=== PATIENT | male | born 1935 | race Caucasian/White ===

== ENCOUNTER 2017-01-01 18:12 | Emergency (ER) | payer MEDICARE, OTHER ==
[2017-01-01] MEDS ORDERED: ACETAMINOPHEN 325 MG TABLET PO STA (20:21)
--- NOTE | 2017-01-01 20:23 | ED Physician Documentation ---
PD HPI Fall - Stated complaint Stated Complaint: FACE LACS DUE TO FALL - Chief complaint Chief Complaint: Heent - History obtained from History obtained from: Patient, Friend - History of Present Illness Mechanism of injury: Tripped Fall distance: Standing position Where injury occurred: Home Timing - onset: Today Injury(ies) location: Head, Face, Left Uppper Extremity (shoulder), Right Lower Extremity (knee) Pain level max: 8 Pain level now: 5 Quality of pain: Pain, Aching, Dull Associated symptoms: No: LOC, AMS, Amnesia, Seizures, Ear drainage, Nasal drainage, Neck pain, Weakness, Paresthesias, Dyspnea, Nausea / vomiting, Hematemesis Symptoms improve with: Rest Worsens with: Movement, Palpation Contributing factors: No: Anticoagulated, Intoxicated Similar symptoms before: Has not had sx before Recently seen: Not recently seen - Additional information Additional information: tripped and fell over his dog today Review of Systems Constitutional: denies: Fever, Chills Nose: denies: Rhinorrhea / runny nose, Congestion Throat: denies: Sore throat Respiratory: denies: Cough, Wheezing GI: denies: Abdominal Pain, Nausea, Vomiting, Diarrhea Skin: denies: Rash Musculoskeletal: reports: Neck pain (mild) Neurologic: reports: Headache (mild), Head injury. denies: Focal weakness, Numbness, Confused, Altered mental status, LOC PD PAST MEDICAL HISTORY - Past Medical History Past Medical History: Yes Cardiovascular: Hypertension Respiratory: None Endocrine/Autoimmune: None GI: None : Dialysis, Renal insuffiency HEENT: None Psych: None Musculoskeletal: None Derm: None - Past Surgical History Past Surgical History: Yes HEENT: Cataracts - Present Medications Home Medications: Ambulatory Orders Medication Instructions Recorded Confirmed Amlodipine Besylate 2.5 mg PO DAILY 09/09/13 09/26/15 Doxazosin Mesylate [Cardura] 8 mg PO DAILY 09/09/13 09/26/15 Losartan/Hydrochlorothiazide 1 each PO DAILY 09/09/13 09/26/15 [Losartan-Hctz 100-12.5 mg Tab] - Allergies Allergies/Adverse Reactions: Allergies Allergy/AdvReac Type Severity Reaction Status Date / Time Sulfa (Sulfonamide Allergy Severe Dizziness Verified 09/26/15 13:06 Antibiotics) - Social History Does the pt smoke?: No Smoking Status: Never smoker Does the pt drink ETOH?: No Does the pt have substance abuse?: No - Immunizations Immunizations are current?: Yes PD ED PE NORMAL - Vitals Vital signs reviewed: Yes - General General: Alert and oriented X 3, No acute distress, Well developed/nourished - HEENT HEENT: PERRL, Moist mucous membranes, Other (abrasion to the scalp and large abrasion over the nose. no bony tenderness. no scalp hematoma.) - Neck Neck: Supple, no meningeal sign, Other (mild TTP over the c-spine) - Cardiac Cardiac: RRR - Respiratory Respiratory: No respiratory distress, Clear bilaterally - Abdomen Abdomen: Soft, Non tender - Derm Derm: Warm and dry - Extremities Extremities: Other (Swelling and ecchymosis to the anterior aspect of the right knee. Tenderness over the patella. Also tenderness to palpation diffusely about the left shoulder. Mild pain with range of motion. No crepitus. Neurovascularly intact. Otherwise normal examination of the extremities.) - Neuro Neuro: Alert and oriented X 3 GCS Score: 15 - Psych Psych: Normal mood, Normal affect Results - Vitals Vitals: Vital Signs - 24 hr 01/01/17 01/01/17 18:17 22:46 Temperature 36.5 C Heart Rate 96 63 Respiratory 18 18 Rate Blood Pressure 143/68 H 132/58 H O2 Saturation 96 95 Oxygen O2 Source Room air - Rads (name of study) head CT Radiology: Prelim report reviewed, EMP read contemporaneously, See rad report ( No acute pathology. Moderate volume loss. ) cervical spine CT Radiology: Prelim report reviewed, EMP read contemporaneously, See rad report ( Severe degenerative change. No visible fracture. Moderate emphysema. ) L shoulder xray Radiology: Prelim report reviewed, EMP read contemporaneously, See rad report ( Osteopenia. No acute fracture or dislocation seen. Degenerative joint disease and rotator cuff atrophy. ) R knee xray Radiology: Prelim report reviewed, EMP read contemporaneously, See rad report ( No acute fracture or dislocation seen. Soft tissue swelling with suspected minimal joint effusion. ) PD MEDICAL DECISION MAKING - ED course Complexity details: reviewed results, re-evaluated patient, considered differential, d/w patient ED course: Patient is an 81-year-old male who suffered a ground-level fall today. Wounds were cleansed and bandaged. No acute findings on x-ray or CT scans. Patient is ambulating quite well in the emergency department. He is not requiring assistive devices at this time. No evidence of intracranial hemorrhage, skull fracture or cervical spine fracture. Patient counseled regarding signs and symptoms for which I believe and urgent re-evaluation would be necessary. Patient with good understanding of and agreement to plan and is comfortable going home at this time This document was made in part using voice recognition software. While efforts are made to proofread this document, sound alike and grammatical errors may occur. Departure - Departure Disposition: 01 Home, Self Care Clinical Impression: Nasal abrasion Fall Qualifiers: Encounter type: initial encounter Qualified Code(s): W19.XXXA - Unspecified fall, initial encounter Knee contusion Qualifiers: Encounter type: initial encounter Laterality: right Qualified Code(s): S80.01XA - Contusion of right knee, initial encounter Head injury Qualifiers: Encounter type: initial encounter Qualified Code(s): S09.90XA - Unspecified injury of head, initial encounter Condition: Good Instructions: ED Contusion Lower Ext, ED Abrasion, ED Head Injury Closed Follow-Up: Pascale Bradshaw MD [Primary Care Provider] - Within 3 Days Comments: Return if you worsen. Your nose will take several days to heal. Discharge Date/Time: 01/01/17 22:55
[2017-01-01] MEDS ORDERED: ACETAMINOPHEN 325 MG TABLET PO ONE (20:24)
--- NOTE | 2017-01-01 22:00 | CT Preliminary Report ---
Exam: CT Head W/O IMPRESSION: 1. No acute pathology. 2. Moderate volume loss. [facility] SITE ID: [id number]
--- NOTE | 2017-01-01 22:03 | CT Report ---
EXAM: CT HEAD EXAM DATE: 01/01/2017 09:12 PM. CLINICAL HISTORY: Fall, head injury. COMPARISON: None. TECHNIQUE: Multiaxial CT images were obtained from the foramen magnum to the vertex. IV contrast: Non e. Reformats: Coronal. In accordance with CT protocol optimization, one or more of the following dose reduction techniques w ere utilized for this exam: automated exposure control, adjustment of mA and/or KV based on patient s ize, or use of iterative reconstructive technique. FINDINGS: Parenchyma: No intraparenchymal hemorrhage. No evidence of mass, midline shift, or CT findings of inf arction. [place]-white differentiation is distinct. Extraaxial Spaces: There is moderate prominence of the ventricles and sulci in keeping with moderate volume loss. Ventricles: Normal in size and position. Sinuses: Imaged paranasal sinuses, orbits, and mastoids show no significant abnormality. Bones: No evidence of fracture or calvarial defect. Other: There is a left frontal scalp laceration. IMPRESSION: 1. No acute pathology. 2. Moderate volume loss. [facility] Referring Provider Line: [phone] SITE ID: [id number]
--- NOTE | 2017-01-01 22:04 | CT Preliminary Report ---
Exam: CT Cervical Spine W/O IMPRESSION: 1. Severe degenerative change. 2. No visible fracture. 3. Moderate emphysema. [facility] SITE ID: [id number]
--- NOTE | 2017-01-01 22:07 | CT Report ---
EXAM: CT CERVICAL SPINE WITHOUT CONTRAST DATE: 01/01/2017 09:13 PM HISTORY: Fall, neck pain. COMPARISONS: None. TECHNIQUE: Thin-section axial images were acquired of the cervical spine without contrast. Post-proce ssing: Coronal and sagittal reformats. Other: None. In accordance with CT protocol optimization, one or more of the following dose reduction techniques w ere utilized for this exam: automated exposure control, adjustment of mA and/or KV based on patient s ize, or use of iterative reconstructive technique. FINDINGS: Alignment: There is a mild left mid cervical levoscoliosis. Bones: There is moderate generalized osteopenia. 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 There is severe facet joint osteoart hritis particularly on the right. There is moderate facet joint osteoarthritis on the left. There is disk space narrowing with endplate osteophyte formation throughout the cervical spine. Musculature: Normal. No fatty atrophy. Other: There is moderate emphysema. IMPRESSION: 1. Severe degenerative change. 2. No visible fracture. 3. Moderate emphysema. [facility] Referring Provider Line: [phone] SITE ID: [id number]
--- NOTE | 2017-01-01 22:16 | XRAY Preliminary Report ---
Exam: XR Knee 4 View RT IMPRESSION: 1. No acute fracture or dislocation seen. 2. Soft tissue swelling with suspected minimal joint effusion. [facility] SITE ID: [id number]
--- NOTE | 2017-01-01 22:17 | XRAY Preliminary Report ---
Exam: XR Shoulder 3 View LT IMPRESSION: 1. Osteopenia. No acute fracture or dislocation seen. 2. Degenerative joint disease and rotator cuff atrophy. [facility] SITE ID: [id number]
--- NOTE | 2017-01-01 22:18 | XRAY Report ---
EXAM: RIGHT KNEE RADIOGRAPHY EXAM DATE: 01/01/2017 08:48 PM. CLINICAL HISTORY: Fall, R knee pain. COMPARISON: 04/12/2011. TECHNIQUE: 4 views. FINDINGS: Bones: Osteopenia. No acute fracture seen. Joints: No dislocation seen. Suspect minimal joint effusion. Very mild degenerative changes. Soft Tissues: Soft tissue swelling. Vascular calcifications. IMPRESSION: 1. No acute fracture or dislocation seen. 2. Soft tissue swelling with suspected minimal joint effusion. [facility] Referring Provider Line: [phone] SITE ID: [id number]
--- NOTE | 2017-01-01 22:20 | XRAY Report ---
EXAM: LEFT SHOULDER RADIOGRAPHY EXAM DATE: 01/01/2017 08:48 PM. CLINICAL HISTORY: Fall, L shoulder pain. COMPARISON: None. TECHNIQUE: 3 views. FINDINGS: Bones: Osteopenia. No acute fracture seen. Joints: No dislocation. Mild degenerative joint disease in the glenohumeral joint and acromioclavicul ar joint. Soft tissues: Rotator cuff atrophy. IMPRESSION: 1. Osteopenia. No acute fracture or dislocation seen. 2. Degenerative joint disease and rotator cuff atrophy. [facility] Referring Provider Line: [phone] SITE ID: [id number]
[2017-01-01 22:49] VITALS: BP 132/58
== END 2017-01-01 22:55 | disposition home or self-care (01) ==
LOC: ED 18:12
DX: S00.31XA Abrasion of nose, initial encounter (principal); S80.01XA Contusion of right knee, initial encounter; S09.90XA Unspecified injury of head, initial encounter; W01.0XXA Fall on same level from slipping, tripping and stumbling without subsequent striking against object, initial encounter; Y92.019 Unspecified place in single-family (private) house as the place of occurrence of the external cause; I10 Essential (primary) hypertension; N28.9 Disorder of kidney and ureter, unspecified; Z99.2 Dependence on renal dialysis
CPT/HCPCS: 70450; 72125; 73030; 73564; 99283; 99284; A9270

== ENCOUNTER 2017-02-01 07:14 | Outpatient (CLI) | payer MEDICARE, OTHER ==
--- NOTE | 2017-02-01 10:35 | Ultrasound Report ---
COMPLETE ABDOMINAL ULTRASOUND: 02/01/2017 CLINICAL INDICATION: Ascites. COMPARISON: Renal ultrasound 06/24/2014. TECHNIQUE: Real-time scanning was performed with financial sales representative static images obtained. FINDINGS: The liver measures 15.6 cm. Hepatic echogenicity is increased, compatible with fatty infi ltration. No focal lesion or intrahepatic biliary dilatation is seen. The common bile duct measures 6 mm. The gallbladder demonstrates a small amount of sludge within its lumen. No shadowing calculu s or wall thickening is present. The pancreas is obscured by bowel gas. The kidneys are atrophic, w ith the right measuring 7.8 cm and the left measuring 9.0 cm. Both kidneys demonstrate cortical cyst s. No hydronephrosis or solid renal lesion is seen. The spleen measures 12.8 cm, and demonstrates n ormal echotexture. The visualized proximal abdominal aorta is normal in caliber. The remainder was obscured by bowel gas. The inferior vena cava is unremarkable. A small volume of ascites is noted. IMPRESSION: SMALL VOLUME OF ASCITES. ECHOGENIC LIVER, LIKELY REPRESENTING FATTY INFILTRATION. NO E VIDENCE OF CHOLELITHIASIS OR BILIARY OBSTRUCTION. JOB #: [id number] EXT JOB #:[id number]
== END 2017-02-01 07:15 | disposition home or self-care (01) ==
LOC: DI 07:14
PROVIDERS: ATTEND Internal Medicine Nephrology
DX: R18.8 Other ascites (principal)
CPT/HCPCS: 76700

== ENCOUNTER 2017-02-25 19:23 | Outpatient (CLI) | payer MEDICARE, OTHER | END 2017-02-25 19:24 | disposition short-term general hospital (02) | LOC: EMS 19:23 | PROVIDERS: ATTEND Surgery | DX: R07.9 Chest pain, unspecified (principal); R11.0 Nausea | CPT/HCPCS: A0425; A0427 ==

== ENCOUNTER 2017-04-03 10:43 | Outpatient (CLI) | payer MEDICARE, OTHER ==
--- NOTE | 2017-04-03 17:02 | XRAY Report ---
TWO VIEW CHEST: 04/03/2017 CLINICAL INDICATION: Pneumonia. COMPARISON: 09/26/2015, chest CT 08/26/2007. The cardiac silhouette is within normal limits. There is a right basilar infiltrate present, with sm all right effusion. Vascular prominence of the right hilum is stable from previous. No left infiltr ate, effusion, or pneumothorax is appreciated. IMPRESSION: RIGHT BASILAR INFILTRATE WITH SMALL RIGHT EFFUSION. JOB #: [id number] EXT JOB #:[id number]
== END 2017-04-03 10:44 | disposition home or self-care (01) ==
LOC: DI 10:43
PROVIDERS: ATTEND Internal Medicine
DX: J18.9 Pneumonia, unspecified organism (principal)
CPT/HCPCS: 71020

== ENCOUNTER 2017-04-10 09:09 | Outpatient (CLI) | payer MEDICARE, OTHER ==
[2017-04-10] MEDS ORDERED: IOPAMIDOL-300 100 ML VIAL IVP ONE (14:35)
--- NOTE | 2017-04-10 17:49 | CT Report ---
CT ABDOMEN WITH AND WITHOUT CONTRAST: 04/10/2017 CLINICAL INDICATION: Cirrhosis, liver protocol CT. COMPARISON: Ultrasound 02/01/2017, previous CT without contrast 03/10/2008. Axial CT images of the abdomen were obtained prior to and following 100 mL Isovue-300 intravenously, and early arterial, portal venous, and delayed phases. In accordance with CT protocol optimization, one or more of the following dose reduction techniques w ere utilized for this exam: automated exposure control, adjustment of mA and/or KV based on patient size, or use of iterative reconstructive technique. Limited evaluation of the lung bases demonstrates a small pericardial effusion and a small right pleu ral effusion, with associated basilar air-space disease. The liver demonstrates a nodular contour, compatible with cirrhosis. No focal hepatic lesion is seen in early arterial, portal venous, or delayed phases. The gallbladder is not dilated. Moderate to l arge volume of ascites is present. The spleen, pancreas and adrenal glands appear unremarkable. The kidneys are atrophic, with cortical cysts bilaterally. No bowel obstruction or adenopathy is apprec iated. Osseous structures demonstrate degenerative changes. IMPRESSION: CIRRHOTIC LIVER. NO EVIDENCE OF FOCAL HEPATIC LESION. MODERATE TO LARGE VOLUME OF ASCI [place]. SMALL RIGHT PLEURAL EFFUSION AND SMALL PERICARDIAL EFFUSION. JOB #: [id number] EXT JOB #:[id number]
== END 2017-04-10 09:10 | disposition home or self-care (01) ==
LOC: DI 09:09
PROVIDERS: ATTEND Internal Medicine Gastroenterology
DX: K74.60 Unspecified cirrhosis of liver (principal); R18.8 Other ascites; J90 Pleural effusion, not elsewhere classified; I31.3 Pericardial effusion (noninflammatory)
CPT/HCPCS: 74160; Q9967

== ENCOUNTER 2017-05-10 11:33 | Outpatient (CLI) | payer MEDICARE, OTHER | END 2017-05-10 11:34 | disposition home or self-care (01) | LOC: LAB.R 11:33 | PROVIDERS: ATTEND Internal Medicine | DX: R19.7 Diarrhea, unspecified (principal) | CPT/HCPCS: 83630; 87045; 87046; 87077; 87493 ==

== ENCOUNTER 2017-05-16 10:57 | Emergency (ER) | payer MEDICARE, OTHER ==
[2017-05-16] MEDS ORDERED: SODIUM CHLORIDE FLUSH 0.9% 10 ML SYRINGE IVP ONE (12:16)
--- NOTE | 2017-05-16 12:25 | ED Physician Documentation ---
PD HPI CHEST PAIN - Stated complaint Stated Complaint: DIFFICULTY BREATHING - Chief complaint Chief Complaint: Resp - History obtained from History obtained from: Patient, Caregiver - History of Present Illness Timing - onset: Other (This is an 81-year-old gentleman with history of end- stage renal disease, dialyzed Sunday, Sunday, Sunday. He also has coronary disease with what he estimates is a single 6-year-old stent in place, placed at [facility]. He has a history of atrial fibrillation, although he does not remember it, but this was present in the chart. For the last couple of weeks he has had increasing intermittent left-sided sharp ice pick like chest wall pain that is worse with motion and deep breathing. He is also short of breath with a productive cough of clear sputum. He has increasing abdominal girth and some increasing urinary output despite being on dialysis.) Review of Systems Ten Systems: 10 systems reviewed and negative Constitutional: denies: Fever, Chills Nose: denies: Rhinorrhea / runny nose, Congestion Respiratory: reports: Dyspnea, Cough GI: denies: Abdominal Pain PD PAST MEDICAL HISTORY - Past Medical History Cardiovascular: Hypertension Respiratory: None Endocrine/Autoimmune: None GI: None : Dialysis, Renal insuffiency HEENT: None Psych: None Musculoskeletal: None Derm: None - Past Surgical History Past Surgical History: Yes HEENT: Cataracts - Present Medications Home Medications: Ambulatory Orders Medication Instructions Recorded Confirmed Amlodipine Besylate 2.5 mg PO DAILY 09/09/13 09/26/15 Doxazosin Mesylate [Cardura] 8 mg PO DAILY 09/09/13 09/26/15 Losartan/Hydrochlorothiazide 1 each PO DAILY 09/09/13 09/26/15 [Losartan-Hctz 100-12.5 mg Tab] - Allergies Allergies/Adverse Reactions: Allergies Allergy/AdvReac Type Severity Reaction Status Date / Time Sulfa (Sulfonamide Allergy Severe Dizziness Verified 09/26/15 13:06 Antibiotics) - Social History Does the pt smoke?: No Smoking Status: Never smoker Does the pt drink ETOH?: No Does the pt have substance abuse?: No - Immunizations Immunizations are current?: Yes PD ED PE NORMAL - Vitals Vital signs reviewed: Yes (Tachypneic) - General General: No acute distress, Other (Some clear short-term memory difficulties, the history is aided by the caregiver who is at the bedside.) - HEENT HEENT: PERRL, EOMI - Neck Neck: Supple, no meningeal sign, No bony TTP - Cardiac Cardiac: No murmur, Other (Irregularly irregular) - Respiratory Respiratory: Other (Tachypneic and speaking in full sentences, but not full paragraphs. Rhonchorous and diminished at the bases.) - Abdomen Abdomen: Other (Protuberant abdomen with fluid-filled umbilical hernia and positive fluid wave. No tenderness.) - Back Back: No CVA TTP, No spinal TTP - Derm Derm: Normal color, Warm and dry - Extremities Extremities: Other (Trace pitting pedal edema) - Neuro Neuro: No motor deficit, No sensory deficit - Psych Psych: Normal mood, Normal affect Results - Vitals Vitals: Vital Signs - 24 hr 05/16/17 05/16/17 05/16/17 11:04 11:51 13:49 Temperature 36.6 C 36.4 C L 36.9 C Heart Rate 88 91 70 Respiratory 34 H 18 22 Rate Blood Pressure 107/51 L 115/52 L 108/60 O2 Saturation 96 94 94 05/16/17 15:06 Temperature Heart Rate 84 Respiratory 18 Rate Blood Pressure 128/74 O2 Saturation 94 Oxygen O2 Source Room air - EKG (time done) 1108 Rate: Rate (enter#) (93) Rhythm: Atrial fibrillation [place]: Normal Ischemia: Other (He has a right bundle branch block and deep T-wave inversion in the precordium which is old compared with September 26 of last year.). No: ST elevation c/w ischemia Computer interpretation: Agree with computer - Labs Labs: Laboratory Tests 05/16/17 05/16/17 05/16/17 12:30 12:30 12:30 WBC 5.1 RBC 3.68 L Hgb 11.5 L Hct 34.5 L MCV 93.6 MCH 31.3 H MCHC 33.4 RDW 17.4 H Plt Count 144 MPV 7.9 Neut # 3.7 Lymph # 0.8 L Wagoner # 0.6 Eos # 0.0 Baso # 0.0 Absolute Nucleated RBC 0.00 Nucleated RBC % 0.0 PT 35.0 H INR 3.1 H Sodium 138 Potassium 5.0 Chloride 97 L Carbon Dioxide 24 Anion Gap 17.0 H BUN 55 H Creatinine 5.3 H Estimated GFR (MDRD) 10 L Glucose 72 Calcium 9.4 Total Bilirubin 0.5 AST 17 ALT < 10 L Alkaline Phosphatase 85 Total Creatine Kinase 45 CK-MB (CK-2) Troponin I Total Protein 7.0 Albumin 3.0 L Globulin 4.0 Albumin/Globulin Ratio 0.8 L Lipase 31 05/16/17 12:30 WBC RBC Hgb Hct MCV MCH MCHC RDW Plt Count MPV Neut # Lymph # Wagoner # Eos # Baso # Absolute Nucleated RBC Nucleated RBC % PT INR Sodium Potassium Chloride Carbon Dioxide Anion Gap BUN Creatinine Estimated GFR (MDRD) Glucose Calcium Total Bilirubin AST ALT Alkaline Phosphatase Total Creatine Kinase CK-MB (CK-2) 4.5 Troponin I 0.04 Total Protein Albumin Globulin Albumin/Globulin Ratio Lipase - Rads (name of study) 1v chest Radiology: EMP read contemporaneously (Cardiomegaly with pulmonary vascular congestion and a small right-sided pleural effusion.) PD MEDICAL DECISION MAKING - ED course ED course: 81-year-old gentleman with history of end-stage renal disease presents with intermittent atypical chest pain and evidence of fluid overload. He is not in extremis, [place] called for likely transfer at 1:55 PM. Initially spoke with her hospitalist at 2:15 PM who deferred to their obs team and he was accepted by Dr. Crawley at 1425. Departure - Departure Disposition: 02 Transfer Acute Care Hosp Clinical Impression: ESRD (end stage renal disease) Congestive heart failure Qualifiers: Congestive heart failure type: unspecified congestive heart failure type Congestive heart failure chronicity: unspecified congestive heart failure chronicity Qualified Code(s): I50.9 - Heart failure, unspecified Chest pain Qualifiers: Chest pain type: unspecified Qualified Code(s): R07.9 - Chest pain, unspecified Dyspnea Qualifiers: Dyspnea type: dyspnea on exertion Qualified Code(s): R06.09 - Other forms of dyspnea Atrial fibrillation Qualifiers: Atrial fibrillation type: unspecified Qualified Code(s): I48.91 - Unspecified atrial fibrillation Condition: Stable Discharge Date/Time: 05/16/17 15:48
[2017-05-16 12:47] LABS: BASOPHILS % (AUTO) 0.4 %; EOSINOPHILS % (AUTO) 0.7 %; HCT - HEMATOCRIT 34.5 % (42.0-52.0); HGB - HEMOGLOBIN 11.5 g/dL (14.0-18.0); LYMPHOCYTES # (AUTO) 0.8 10^3/uL (1.5-3.5); LYMPHOCYTES % (AUTO) 16.4 %; MEAN CORPUSCULAR HEMOGLOBIN 31.3 pg (27.0-31.0); MEAN CORPUSCULAR HGB CONC 33.4 g/dL (32.0-36.0); MEAN CORPUSCULAR VOLUME 93.6 fL (80.0-94.0); MEAN PLATELET VOLUME 7.9 fL (7.4-11.4); MONOCYTES # (AUTO) 0.6 10^3/uL (0.0-1.0); MONOCYTES % (AUTO) 10.9 %; NEUTROPHILS # (AUTO) 3.7 10^3/uL (1.5-6.6); NEUTROPHILS % (AUTO) 71.6 %; RED BLOOD COUNT 3.68 10^6/uL (4.70-6.10); RED CELL DISTRIBUTION WIDTH 17.4 % (12.0-15.0); UNCORRECTED WHITE BLOOD COUNT 5.1 x10^3/uL; WHITE BLOOD COUNT 5.1 x10^3/uL (4.8-10.8)
[2017-05-16 12:54] LABS: INR 3.1 (0.8-1.2)
[2017-05-16 12:58] LABS: ALBUMIN/GLOBULIN RATIO 0.8 (1.0-2.2); BILIRUBIN,TOTAL 0.5 mg/dL (0.2-1.0); BUN - BLOOD UREA NITROGEN 55 mg/dL (6-20); CALCIUM 9.4 mg/dL (8.5-10.3); CARBON DIOXIDE - CO2 24 mmol/L (21-32); CHLORIDE 97 mmol/L (101-111); CREATININE 5.3 mg/dL (0.6-1.2); GFR - MDRD 10 (>89); GLUCOSE 72 mg/dL (70-100); LIPASE 31 U/L (22-51); SODIUM 138 mmol/L (135-145)
[2017-05-16 13:01] LABS: TROPONIN I 0.04 ng/mL (<0.49)
[2017-05-16 13:04] LABS: CREATINE KINASE MB 4.5 ng/mL (0.6-6.3)
--- NOTE | 2017-05-16 13:41 | XRAY Preliminary Report ---
Exam: XR CHEST 1 VIEW IMPRESSION: Cardiomegaly with pulmonary vascular congestion and small right-sided pleural effusion ca n be seen in the setting of CHF exacerbation. Superimposed infectious process not excluded. [facility] SITE ID: [id number]
--- NOTE | 2017-05-16 13:44 | XRAY Report ---
EXAM: CHEST RADIOGRAPHY EXAM DATE: 05/16/2017 12:54 PM. CLINICAL HISTORY: Chest pain. COMPARISON: Chest x-ray dated 04/03/2017. TECHNIQUE: 1 view. FINDINGS: Lungs/Pleura: Increased interstitial markings and vascular markings throughout both lungs. Small righ t-sided pleural effusion redemonstrated. Mediastinum: The heart is enlarged. Pulmonary vasculature is prominent. Other: None. IMPRESSION: Cardiomegaly with pulmonary vascular congestion and small right-sided pleural effusion ca n be seen in the setting of CHF exacerbation. Superimposed infectious process not excluded. [facility] Referring Provider Line: [phone] SITE ID: [id number]
[2017-05-16 15:07] VITALS: BP 128/74
== END 2017-05-16 15:48 | disposition short-term general hospital (02) ==
LOC: ED 10:57
DX: I13.2 Hypertensive heart and chronic kidney disease with heart failure and with stage 5 chronic kidney disease, or end stage renal disease (principal); N18.6 End stage renal disease; I50.9 Heart failure, unspecified; Z99.2 Dependence on renal dialysis; I48.91 Unspecified atrial fibrillation; I45.10 Unspecified right bundle-branch block; R94.31 Abnormal electrocardiogram [ECG] [EKG]; I25.10 Atherosclerotic heart disease of native coronary artery without angina pectoris
CPT/HCPCS: 36415; 71010; 80053; 82550; 82553; 83690; 84484; 85025; 85610; 93005; 99284; 99285

== ENCOUNTER 2017-05-16 15:49 | Outpatient (CLI) | payer MEDICARE, OTHER | END 2017-05-16 15:50 | disposition short-term general hospital (02) | LOC: EMS 15:49 | PROVIDERS: ATTEND Surgery | DX: R07.9 Chest pain, unspecified (principal); R06.02 Shortness of breath | CPT/HCPCS: A0425; A0426 ==

== ENCOUNTER 2017-09-18 11:11 | Outpatient (CLI) | payer MEDICARE, OTHER | END 2017-09-18 11:12 | disposition critical access hospital (66) | LOC: EMS 11:11 | PROVIDERS: ATTEND Surgery | DX: M25.551 Pain in right hip (principal); M25.511 Pain in right shoulder; W19.XXXA Unspecified fall, initial encounter; Y92.007 Garden or yard of unspecified non-institutional (private) residence as the place of occurrence of the external cause | CPT/HCPCS: A0425; A0429 ==

== ENCOUNTER 2017-09-18 11:16 | Emergency (ER) | payer MEDICARE, OTHER ==
--- NOTE | 2017-09-18 13:02 | ED Physician Documentation ---
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 No: Head, Neck, Chest, Abdomen Associated symptoms: No: LOC, AMS Worsens with: Movement Similar symptoms before: No diagnosis (has some chronic shoulder pain and crackling with ROm and has not been able to reach above shoulder height awhile.) Recently seen: Clinic (gets fialysis 3 times per week; got it yesterday without problems.) Review of Systems Constitutional: denies: Fever, Chills Ears: reports: Loss of hearing Cardiac: denies: Chest pain / pressure, Palpitations Respiratory: reports: Dyspnea (chronic). denies: Cough GI: reports: Abdominal Swelling (slowly worsening ascites recurrent. Had it tapped in past couple of months. Related to renal disease? no history of liver disease.). denies: Vomiting, Diarrhea Neurologic: reports: Generalized weakness. denies: Focal weakness, Numbness, Near syncope, Confused, Altered mental status, Headache, Head injury PD PAST MEDICAL HISTORY - Past Medical History Cardiovascular: Hypertension Respiratory: None Endocrine/Autoimmune: None GI: None : Dialysis, Renal insuffiency HEENT: None Psych: None Musculoskeletal: None Derm: None - Past Surgical History Past Surgical History: Yes HEENT: Cataracts - Present Medications Home Medications: Ambulatory Orders Medication Instructions Recorded Confirmed Amlodipine Besylate 2.5 mg PO DAILY 09/09/13 09/26/15 Doxazosin Mesylate [Cardura] 8 mg PO DAILY 09/09/13 09/26/15 Losartan/Hydrochlorothiazide 1 each PO DAILY 09/09/13 09/26/15 [Losartan-Hctz 100-12.5 mg Tab] - Allergies Allergies/Adverse Reactions: Allergies Allergy/AdvReac Type Severity Reaction Status Date / Time Sulfa (Sulfonamide Allergy Severe Dizziness Verified 09/26/15 13:06 Antibiotics) - Social History Does the pt smoke?: No Smoking Status: Never smoker Does the pt drink ETOH?: No Does the pt have substance abuse?: No - Immunizations Immunizations are current?: Yes PD ED PE NORMAL - Vitals Vital signs reviewed: Yes - General General: Alert and oriented X 3, No acute distress, Well developed/nourished - HEENT HEENT: Atraumatic, Pharynx benign - Neck Neck: Supple, no meningeal sign, No adenopathy - Cardiac Cardiac: RRR, No murmur - Respiratory Respiratory: Clear bilaterally - Abdomen Abdomen: Soft, Other (very distended but not tense, with dullness to percussion. ) - Back Back: No CVA TTP - Derm Derm: Normal color, Warm and dry, No rash - Extremities Extremities: No tenderness to palpate, Normal ROM s pain, No calf tenderness / cord, Other (1+ edema in both legs. ) - Neuro Neuro: Alert and oriented X 3, No motor deficit, Normal speech - Psych Psych: Normal mood Results - Vitals Vitals: Vital Signs - 24 hr 09/18/17 09/18/17 09/18/17 11:24 11:34 13:00 Temperature 36.5 C Heart Rate 80 100 90 Respiratory 18 18 20 Rate Blood Pressure 121/78 121/78 109/70 O2 Saturation 90 L 100 95 09/18/17 09/18/17 14:25 15:32 Temperature Heart Rate 95 94 Respiratory 18 20 Rate Blood Pressure 92/45 L 104/56 L O2 Saturation 100 100 Oxygen O2 Source Nasal cannula Oxygen Flow Rate 2 - Labs Labs: Laboratory Tests 09/18/17 09/18/17 14:40 14:40 WBC 5.5 RBC 3.82 L Hgb 12.0 L Hct 35.6 L MCV 93.2 MCH 31.3 H MCHC 33.6 RDW 18.5 H Plt Count 159 MPV 8.1 Neut # 4.1 Lymph # 0.8 L [place] # 0.6 Eos # 0.0 Baso # 0.0 Absolute Nucleated RBC 0.00 Nucleated RBC % 0.0 Sodium 139 Potassium 4.6 Chloride 100 L Carbon Dioxide 28 Anion Gap 11.0 BUN 21 H Creatinine 3.1 H Estimated GFR (MDRD) 19 L Glucose 86 Calcium 9.4 Phosphorus 3.4 Magnesium 1.9 Total Bilirubin 1.1 H AST 20 ALT < 10 L Alkaline Phosphatase 60 Total Protein 6.2 L Albumin 2.6 L Globulin 3.6 Albumin/Globulin Ratio 0.7 L Lipase < 10 L - Rads (name of study) right shoulder Radiology: Prelim report reviewed (no fracture - rotator cuff calcific changes. Arthritis.) right hip Radiology: Prelim report reviewed (no fractures; arthritic changes noted. ) PD MEDICAL DECISION MAKING - ED course Complexity details: reviewed results (no fractures of hip/shoulder but with arthritic and rotator cuff changes in shoulder. ), considered differential ( dialysis patient with progressive general weakness. Has abd effusion without liver disease. Has had it tapped in the past. It is begger the past 2-3 weeks, progressively. He does not want it tapped right now. Has walker/wheelchair at home. ), d/w patient Departure - Departure Disposition: 01 Home, Self Care Clinical Impression: History of recent fall, Generalized weakness Shoulder pain, acute Qualifiers: Laterality: right Qualified Code(s): M25.511 - Pain in right shoulder Contusion, hip Qualifiers: Encounter type: initial encounter Laterality: right Qualified Code(s): S70.01XA - Contusion of right hip, initial encounter Ascites Qualifiers: Ascites type: other type Qualified Code(s): R18.8 - Other ascites Condition: Stable Record reviewed to determine appropriate education?: Yes Instructions: ED Contusion Hip, ED Sprain Shoulder Follow-Up: Pascale Bradshaw MD [Primary Care Provider] - Comments: No obvious fractures of your shoulder and hip. 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 Range of motion as able for your shoulder. Use Tylenol 500 mg 4 times a day. Add your tramadol at night if needed. Continue your other medications. Your basic electrolytes are looking okay. I presume the general weakness relates to the chronic renal failure. 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 Discharge Date/Time: 09/18/17 16:30
[2017-09-18] MEDS ORDERED: ACETAMINOPHEN 325 MG TABLET PO STA (13:21)
--- NOTE | 2017-09-18 14:18 | XRAY Report ---
EXAM: RIGHT HIP AND PELVIS RADIOGRAPHY EXAM DATE: 09/18/2017 02:02 PM. HISTORY: Fall a week ago, still hurting at hip. COMPARISONS: None. TECHNIQUE: 1 view of the pelvis and 1 view of the hip. FINDINGS: Bones: Normal. No fracture or bone lesion. Joints: The bilateral hip, pubis symphysis, and sacroiliac joints are preserved. Soft Tissues: There are moderate vascular calcifications. There is a non-obstructive bowel gas patter n. IMPRESSION: No acute fracture or subluxation. [facility] Referring Provider Line: [phone] SITE ID: [id number]
--- NOTE | 2017-09-18 14:21 | XRAY Report ---
EXAM: RIGHT SHOULDER RADIOGRAPHY EXAM DATE: 09/18/2017 02:02 PM. CLINICAL HISTORY: Fall a week ago, still hurting. COMPARISON: None. TECHNIQUE: 3 views. FINDINGS: Bones: There is generalized demineralization. No acute fracture. There is degenerative disease and sp urring of the acromioclavicular joint. Joints: There is mild superior subluxation of the humeral head at the glenohumeral joint. No dislocat ion. Soft tissues: Negative for right pneumothorax. IMPRESSION: 1. No acute fracture or dislocation. Chronic degenerative disease of acromioclavicular joint and mild superior subluxation of humeral head and possibility of previous rotator cuff tear. [facility] Referring Provider Line: [phone] SITE ID: [id number]
--- NOTE | 2017-09-18 14:21 | XRAY Preliminary Report ---
Exam: XR SHOULDER 3 VIEW RT IMPRESSION: 1. No acute fracture or dislocation. Chronic degenerative disease of acromioclavicular joint and mild superior subluxation of humeral head and possibility of previous rotator cuff tear. [facility] SITE ID: [id number]
[2017-09-18 15:08] LABS: BASOPHILS % (AUTO) 0.4 %; EOSINOPHILS % (AUTO) 0.2 %; LYMPHOCYTES # (AUTO) 0.8 10^3/uL (1.5-3.5); LYMPHOCYTES % (AUTO) 14.2 %; MEAN CORPUSCULAR HEMOGLOBIN 31.3 pg (27.0-31.0); MEAN CORPUSCULAR HGB CONC 33.6 g/dL (32.0-36.0); MEAN CORPUSCULAR VOLUME 93.2 fL (80.0-94.0); MEAN PLATELET VOLUME 8.1 fL (7.4-11.4); MONOCYTES # (AUTO) 0.6 10^3/uL (0.0-1.0); MONOCYTES % (AUTO) 10.7 %; NEUTROPHILS # (AUTO) 4.1 10^3/uL (1.5-6.6); NEUTROPHILS % (AUTO) 74.5 %; PLT - PLATELET COUNT 159 10^3/uL (130-450); RED BLOOD COUNT 3.82 10^6/uL (4.70-6.10); RED CELL DISTRIBUTION WIDTH 18.5 % (12.0-15.0); WHITE BLOOD COUNT 5.5 x10^3/uL (4.8-10.8)
[2017-09-18 15:26] LABS: ALBUMIN 2.6 g/dL (3.2-5.5); ALBUMIN/GLOBULIN RATIO 0.7 (1.0-2.2); ALKALINE PHOSPHATASE 60 IU/L (42-121); ALT ALANINE AMINOTRANSFERASE < 10 IU/L (10-60); AST ASPARTATE AMINOTRANSFERASE 20 IU/L (10-42); BILIRUBIN,TOTAL 1.1 mg/dL (0.2-1.0); BUN - BLOOD UREA NITROGEN 21 mg/dL (6-20); CALCIUM 9.4 mg/dL (8.5-10.3); CARBON DIOXIDE - CO2 28 mmol/L (21-32); CHLORIDE 100 mmol/L (101-111); CREATININE 3.1 mg/dL (0.6-1.2); GFR - MDRD 19 (>89); GLUCOSE 86 mg/dL (70-100); LIPASE < 10 U/L (22-51); MAGNESIUM 1.9 mg/dL (1.7-2.8); PHOSPHORUS 3.4 mg/dL (2.5-4.6); SODIUM 139 mmol/L (135-145); TOTAL PROTEIN 6.2 g/dL (6.7-8.2)
[2017-09-18 15:33] VITALS: BP 104/56
== END 2017-09-18 16:30 | disposition home or self-care (01) ==
LOC: EDUNIT# → ED 11:16
DX: S70.01XA Contusion of right hip, initial encounter (principal); M25.511 Pain in right shoulder; W01.0XXA Fall on same level from slipping, tripping and stumbling without subsequent striking against object, initial encounter; Y93.01 Activity, walking, marching and hiking; Y92.019 Unspecified place in single-family (private) house as the place of occurrence of the external cause; Z91.81 History of falling; R18.8 Other ascites; R53.1 Weakness; I12.9 Hypertensive chronic kidney disease with stage 1 through stage 4 chronic kidney disease, or unspecified chronic kidney disease; N18.9 Chronic kidney disease, unspecified; Z99.2 Dependence on renal dialysis; M19.90 Unspecified osteoarthritis, unspecified site
CPT/HCPCS: 36415; 73030; 73502; 80053; 83690; 83735; 84100; 85025; 99283; 99284; A9270

== ENCOUNTER 2017-09-25 07:40 | Outpatient (CLI) | payer MEDICARE, OTHER | END 2017-09-25 07:41 | disposition critical access hospital (66) | LOC: EMS 07:40 | PROVIDERS: ATTEND Surgery | DX: R53.1 Weakness (principal); M79.604 Pain in right leg; W06.XXXA Fall from bed, initial encounter; Y92.003 Bedroom of unspecified non-institutional (private) residence as the place of occurrence of the external cause | CPT/HCPCS: A0425; A0429 ==

== ENCOUNTER 2017-09-25 07:45 | Emergency (ER) | payer MEDICARE, OTHER ==
--- NOTE | 2017-09-25 08:08 | ED Physician Documentation ---
History of Present Illness - Stated complaint Stated Complaint: GLF - Chief complaint Chief Complaint: General - History obtained from History obtained from: Patient, EMS - History of Present Illness Timing: Today - Additonal information Additional information: 82-year-old male on hemodialysis has become weak over the past month. Today he fell out of bed and was not able to get himself back up and into bed. He says that he does not have any specific pain he just feels weak. He was dialyzed yesterday. Review of Systems Constitutional: reports: Fatigue. denies: Fever Eyes: denies: Decreased vision Ears: denies: Ear pain Nose: denies: Congestion Throat: denies: Sore throat Cardiac: denies: Chest pain / pressure, Palpitations Respiratory: reports: Dyspnea, Cough GI: denies: Nausea, Vomiting : denies: Dysuria Musculoskeletal: reports: Back pain Neurologic: reports: Generalized weakness. denies: Focal weakness, Numbness PD PAST MEDICAL HISTORY - Past Medical History Cardiovascular: Hypertension Respiratory: None Endocrine/Autoimmune: None GI: None : Dialysis, Renal insuffiency HEENT: None Psych: None Musculoskeletal: None Derm: None - Past Surgical History Past Surgical History: Yes HEENT: Cataracts - Present Medications Home Medications: Ambulatory Orders Medication Instructions Recorded Confirmed Ferric Citrate [Auryxia] 210 mg PO TID 09/25/17 09/25/17 Furosemide [Lasix] 40 mg PO DAILY 09/25/17 09/25/17 Metoprolol Succinate 25 mg PO BID 09/25/17 09/25/17 Spironolactone 200 mg PO DAILY 09/25/17 09/25/17 traMADol [Ultram] 50 mg PO BID 09/25/17 09/25/17 - Allergies Allergies/Adverse Reactions: Allergies Allergy/AdvReac Type Severity Reaction Status Date / Time Sulfa (Sulfonamide Allergy Severe Dizziness Verified 09/26/15 13:06 Antibiotics) - Social History Does the pt smoke?: No Smoking Status: Never smoker Does the pt drink ETOH?: No Does the pt have substance abuse?: No - Immunizations Immunizations are current?: Yes PD ED PE NORMAL - Vitals Vital signs reviewed: Yes (hypoxia) - General General: No acute distress, Other (A weak frail elderly male who is interactive but does not have a lot to say.) - HEENT HEENT: Atraumatic, PERRL, EOMI, Other (Dry mucous membranes) - Neck Neck: Supple, no meningeal sign, No bony TTP - Cardiac Cardiac: RRR, No murmur - Respiratory Respiratory: No respiratory distress, Other (Diminished breath sounds with rhonchi in the right base) - Abdomen Abdomen: Soft, Non tender - Back Back: No CVA TTP, No spinal TTP - Derm Derm: Normal color, Warm and dry, No rash - Extremities Extremities: No deformity, Other - Neuro Neuro: No motor deficit (Trace edema), No sensory deficit Eye Opening: Spontaneous Motor: Obeys Commands Verbal: Oriented GCS Score: 15 - Psych Psych: Normal mood, Normal affect Results - Vitals Vitals: Vital Signs - 24 hr 09/25/17 09/25/17 09/25/17 07:50 10:51 13:04 Temperature 36.2 C L Heart Rate 99 77 90 Respiratory 17 16 16 Rate Blood Pressure 123/66 119/76 101/60 O2 Saturation 87 L 98 97 Oxygen O2 Source Room air Oxygen Flow Rate 3 - Labs Labs: Laboratory Tests 09/25/17 09/25/17 09/25/17 09:14 09:14 09:14 WBC 5.0 RBC 3.85 L Hgb 12.0 L Hct 36.0 L MCV 93.4 MCH 31.1 H MCHC 33.3 RDW 18.2 H Plt Count 155 MPV 8.2 Neut # 3.8 Lymph # 0.7 L [place] # 0.4 Eos # 0.0 Baso # 0.0 Absolute Nucleated RBC 0.01 Nucleated RBC % 0.1 Sodium 138 Potassium 4.4 Chloride 97 L Carbon Dioxide 26 Anion Gap 15.0 H BUN 21 H Creatinine 3.0 H Estimated GFR (MDRD) 20 L Glucose 78 Calcium 9.6 Total Bilirubin 1.2 H AST 24 ALT < 10 L Alkaline Phosphatase 73 Troponin I 0.13 Total Protein 6.6 L Albumin 2.8 L Globulin 3.8 Albumin/Globulin Ratio 0.7 L Lipase < 10 L - Rads (name of study) 1 view chest Radiology: Prelim report reviewed (Impression: Right lower lobe infiltrate or atelectasis with moderate right effusion.), EMP read indepedently, See rad report Procedures - IVC sono (time) 0800 Bedside IVC sono: IVC measures (cm) (1.56), Euvolemia, Other (tense ascites) PD MEDICAL DECISION MAKING - ED course Complexity details: reviewed old records, reviewed results, re-evaluated patient , considered differential, d/w patient, d/w family ED course: 82 year old male on dialysis has developed weakness over the past month today is not even able to get up off the ground. On evaluation he does have pneumonia in the right lower lobe. He will need admission to the hospital and he does appear to be slowly dying. I have discussed his case with his automobile travel club counselor Dr. FRANKI Shah and he recommends hospitalization at either [facility] or [facility] as this patient will likely need a longer hospitalization. Dr. Blanco the hospitalist at [facility] in [place] is contacted by telephone and graciously agrees to accept the patient in transfer for treatment of pneumonia as an inpatient. He is started on treatment for community acquired pneumonia with 1 g of Rocephin and 500 mg of azithromycin. Departure - Departure Disposition: 02 Transfer Acute Care Hosp Clinical Impression: Pneumonia Qualifiers: Pneumonia type: due to unspecified organism Laterality: right Lung location: lower lobe of lung Qualified Code(s): J18.1 - Lobar pneumonia, unspecified organism Condition: Serious
[2017-09-25 09:26] LABS: BASOPHILS % (AUTO) 0.4 %; EOSINOPHILS % (AUTO) 0.3 %; LYMPHOCYTES # (AUTO) 0.7 10^3/uL (1.5-3.5); LYMPHOCYTES % (AUTO) 13.9 %; MEAN CORPUSCULAR HEMOGLOBIN 31.1 pg (27.0-31.0); MEAN CORPUSCULAR HGB CONC 33.3 g/dL (32.0-36.0); MEAN CORPUSCULAR VOLUME 93.4 fL (80.0-94.0); MEAN PLATELET VOLUME 8.2 fL (7.4-11.4); MONOCYTES # (AUTO) 0.4 10^3/uL (0.0-1.0); MONOCYTES % (AUTO) 8.5 %; NEUTROPHILS # (AUTO) 3.8 10^3/uL (1.5-6.6); NEUTROPHILS % (AUTO) 76.9 %; PLT - PLATELET COUNT 155 10^3/uL (130-450); RED BLOOD COUNT 3.85 10^6/uL (4.70-6.10); RED CELL DISTRIBUTION WIDTH 18.2 % (12.0-15.0)
[2017-09-25 09:45] LABS: ALBUMIN 2.8 g/dL (3.2-5.5); ALBUMIN/GLOBULIN RATIO 0.7 (1.0-2.2); ALKALINE PHOSPHATASE 73 IU/L (42-121); ALT ALANINE AMINOTRANSFERASE < 10 IU/L (10-60); AST ASPARTATE AMINOTRANSFERASE 24 IU/L (10-42); BILIRUBIN,TOTAL 1.2 mg/dL (0.2-1.0); BUN - BLOOD UREA NITROGEN 21 mg/dL (6-20); CALCIUM 9.6 mg/dL (8.5-10.3); CARBON DIOXIDE - CO2 26 mmol/L (21-32); CHLORIDE 97 mmol/L (101-111); GFR - MDRD 20 (>89); GLUCOSE 78 mg/dL (70-100); LIPASE < 10 U/L (22-51); SODIUM 138 mmol/L (135-145); TOTAL PROTEIN 6.6 g/dL (6.7-8.2)
--- NOTE | 2017-09-25 12:13 | XRAY Report ---
EXAM: CHEST RADIOGRAPHY EXAM DATE: 09/25/2017 12:00 PM. CLINICAL HISTORY: Weakness. COMPARISON: 04/03/2017. TECHNIQUE: 1 view. FINDINGS: Lungs/Pleura: Right lower lobe infiltrate or atelectasis. Moderate right pleural effusion most likely layering posteriorly. No pneumothorax. Mediastinum: Obscured by right pleural effusion. No definite cardiomegaly Other: None. IMPRESSION: Right lower lobe infiltrate or atelectasis with moderate right effusion [facility] Referring Provider Line: [phone] SITE ID: [id number]
[2017-09-25] MEDS ORDERED: cefTRIAXone 1 GM in SODIUM CHLORIDE 0.9% MINIBAG 100 ML IV STA (14:56)
[2017-09-25] MEDS ORDERED: AZITHROMYCIN INJ 500 MG in SODIUM CHLORIDE 0.9% 250 ML IV STA (14:56)
[2017-09-25 17:36] VITALS: BP 112/65
== END 2017-09-25 17:38 | disposition short-term general hospital (02) ==
LOC: EDUNIT# → ED 07:45
DX: J18.9 Pneumonia, unspecified organism (principal); I10 Essential (primary) hypertension; N28.9 Disorder of kidney and ureter, unspecified; Z99.2 Dependence on renal dialysis
CPT/HCPCS: 71045; 80053; 83690; 84484; 85025; 87275; 87276; 96365; 96375; 99284; 99285

== ENCOUNTER 2017-09-25 16:58 | Outpatient (CLI) | payer MEDICARE, OTHER | END 2017-09-25 16:59 | disposition short-term general hospital (02) | LOC: EMS 16:58 | PROVIDERS: ATTEND Surgery | DX: J18.9 Pneumonia, unspecified organism (principal); R09.02 Hypoxemia; R10.9 Unspecified abdominal pain; N18.6 End stage renal disease; Z99.2 Dependence on renal dialysis | CPT/HCPCS: A0170; A0425; A0426 ==

== ENCOUNTER 2017-10-16 20:16 | Outpatient (CLI) | payer MEDICARE, OTHER ==
--- NOTE | 2017-10-16 20:30 | CONSULTATION NOTE ---
Palliative Care Consultation - Referral Referring Provider: Dr Pascale Bradshaw Time of Visit: 10/16/2017. 14:25 - 15:40 Referral setting: Assisted living (Seen in home setting due to taxing and considerable effort required to leave the home due to weakness and debility secondary to end-stage renal disease and COPD.) - Information Sources Records reviewed: RN notes reviewed, Previous records reviewed History/Review of Systems obtained from: Patient, Family, Nursing Exam limitations: Clinical condition (hard of hearing) - History of Present Illness Brief History of Present Illness: [id number] for Home Health Wound Care Patient has approximately 3.5cm pressure wound on R hip with 95% slough which could benefit from Home Health Wound Care evaluation and managment. Patient is weak and bed-bound secondary to COPC and end-stage renal disease and on dialysis. Thank you, Dr. Bradshaw, for asking the palliative care consult service to be involved in the care of your patient. I am asked to provide support regarding goals of care. This is a frail, cachectic-appearing charming 82-year-old gentleman with end- stage renal disease on hemodialysis for more than 2 years. He has numerous comorbidities including HTN, CAD, CKD, COPD, severe aortic stenosis, history of possible atrial fibrillation, OA, frequent falls, recent history of pneumonia, significantly hard of hearing. He has a single stent placed approximately 6 years ago, and a history of atrial fibrillation although he does not personally recall it, it is in the records. The patient has been having increasingly more frequent ED visits and a recent hospitalization at [facility]. September 18 he went to the ED for shoulder and hip pain; imaging showed no acute injury. He had another ED visit on September 25 for ground-level fall and weakness, and was diagnosed with pneumonia as revealed by chest x-ray and he was transferred to [facility] in [place]. He was discharged from [facility] to [facility], and stayed there for less than 24 hours because he did not like it. He was then transferred to [facility], where he improved dramatically. His cognition and confusion improved significantly and so he requested to go home. The current plan is to discharge him frome [facility] to his [place] home this Sunday. He was living independently prior to the September 2017 hospitalization, with a caregiver living aircraft time clerk at his property. She was having more and more difficulty because she was not strong enough to support him and do transfer, thus they were considering other living situations. In the meantime, a family friend has recently moved into the patient's home so he can contribute to care giving and now that they have two people living with him, the family's plan is to move the patient back to his home. Family is looking forward to having palliative care oversight to help the patient be able to remain at home as long as possible. The patient admits to being wiped out after his dialysis sessions, which are three times per week: M,W,F. Today is Sunday and he is still tired. He reports that on the weekends, with 2 days' break from hemodialysis, he feels much better on the second day. The patient has significant ascites; his abdomen is distended, with tight skin from fluid overload. He reports no pain and says he has had one drainage and it was so painful he is refusing any further drainage, he prefers it this way than to "facing the needle." He denies it interferes with his breathing. 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 " Medical/Surgical History - Past Medical History Cardiovascular: reports: Hypertension, Atrial fibrillation (reported history of) , Valve disorder (severe aortic stenosis) Respiratory: reports: COPD, Pneumonia (hospitalized for community acquired pneumonia in September 2017), Shortness of breath Endocrine/Autoimmune: reports: None GI: reports: None, Other (ESRD on dialysis; worsening, recurrent ascites) : reports: Dialysis, Renal insuffiency HEENT: reports: None Psych: reports: Depression, Anxiety Musculoskeletal: reports: Osteoarthritis, Fatigue Derm: reports: None MRSA Hx?: No - Past Surgical History Cardiovascular: reports: Coronary stent (6 years ago) HEENT: reports: Cataracts - Substance History Use: Uses substance without health or social issues: Tobacco (non-smoker) Social History - Living Situation Living arrangement: Assisted living (currently at [facility] assisted [facility]; will discharge home on Sunday10/20/2017) Living Situation: With caregiver(s) (He will have two caregivers living aircraft time clerk with him when he returns home.) Support System: Patient is not . His son Tanner Rizvi is his DPOA and lives in [facility]. Daughter in law is Som Patterson. Juliana Vaughn is his lawn care technician? He has a daughter, plus another daughter who is "adopted." He had another daughter who in her 20s from an aneurysm in the brain. Family History - Family History Family History: Mother: (mom age 92 of old age), Father: , Alcoholism ( in his 60s) Medications/Allergies - Medications Home Medications: Ambulatory Orders Medication Instructions Recorded Confirmed Metoprolol Succinate 50 mg PO QPM 09/25/17 10/16/17 Acetaminophen 650 mg PO Q6H PRN 10/16/17 10/16/17 Albuterol Sulfate [Proair Hfa 2 puffs PO Q4H PRN 10/16/17 10/16/17 Inhaler] Bisacodyl Supp [Dulcolax Supp] 10 mg [place] DAILY PRN 10/16/17 10/16/17 Fluticasone 44 Mcg [Flovent] 1 puffs INH Q8H PRN 10/16/17 10/16/17 Ipratropium/Albuterol [Duoneb] 3 ml INH Q6H PRN 10/16/17 10/16/17 Loperamide [Imodium] 2 mg PO PRN PRN MDD NTE 8 tabs in 10/16/17 10/16/17 24 hrs Mag Hydrox/Aluminum Hyd/Simeth 30 ml PO Q4H PRN 10/16/17 10/16/17 [Antacid Suspension] Magnesium Hydroxide [Milk of 30 ml PO DAILY PRN 10/16/17 10/16/17 Magnesia] Midodrine HCl 10 mg PO . 3 TIMES PER WEEK MDD 10/16/17 10/16/17 before dialysis on M,W,F - Allergies Allergies/Adverse Reactions: Allergies Allergy/AdvReac Type Severity Reaction Status Date / Time Sulfa (Sulfonamide Allergy Severe Dizziness Verified 09/26/15 13:06 Antibiotics) Review of Systems - Constitutional Constitutional: reports: Fatigue (after dialysis), Weakness, Poor appetite, Weight loss (very frail. previous weight loss. 139.8 lbs on 10/11/12. 140 lbs on 10/04/17). denies: Fever, Diaphoresis, Night sweats - Ears, Nose & Throat Ears, Nose & Throat: reports: Hearing loss (significant), Other (dentures) - Cardiovascular Cardiovascular: reports: Palpitations, Decr. exercise tolerance. denies: Chest pain - Respiratory Respiratory: reports: Cough, Sputum production, Wheezing, SOB at rest - Gastrointestinal Gastrointestinal: reports: Diarrhea (occasionally), Nausea, Poor appetite, Other (recurrrent ascites; doesn't want to be tapped again). denies: Constipation (occasionally) - Genitourinary Genitourinary: denies: Dysuria - Musculoskeletal Musculoskeletal: reports: Joint pain (in shoulders, particularly R arm), Transfer issues. denies: Back pain - Neurological Neurological: reports: General weakness, Memory problems. denies: Numbness - Psychiatric Psychiatric: reports: Depression, Anxiety Physical Exam - Vital Signs Temperature: 96.8 F Pulse Rate: 50 O2 Saturation: 95 (on room air) Blood Pressure: 98/52 (this is normal for him) - Physical Exam General Appearance: positive: No acute distress, Other (frail, cachectic, temporal wasting) Eyes Bilateral: positive: EOMI, No lid inflammation, Conjunctivae nml Neck: positive: No JVD, Trachea midline Cardiovascular: positive: Regular rate & rhythm, No murmur Respiratory: positive: Chest non-tender, No respiratory distress, Diminished throughout, Other (accessory muscle usage) Abdomen: positive: Non-tender, Nml bowel sounds, Distended (ascites) Skin: positive: Pressure wound (on R hip) Extremities: positive: No pedal edema, Other (frail/muscle wasting) Neurologic/Psychiatric: positive: Oriented x3, Mood/affect nml, Weakness Palliative Care - POLST Patient has POLST: No Pain: No pain Tiredness/Fatigue: Moderate (4-6) Drowsiness/Sedation: Moderate (4-6) Nausea: Mild (1-3) Depression: Mild (1-3) Anxiety: Mild (1-3) Dyspnea: Moderate (4-6) Anorexia: Moderate (4-6) Performance Status: Wheelchair bound, 2-person assist, unable to bear full weight. Full assist with ADLs and shower. Has dentures, doesn't always wear them. - Palliative Care Discussion: Nursing notes state there is a POLST in place; however, there was no copy at the facility and the patient was not aware of a POLST, which may be due to memory deficit. The patient was very active previously, doing "everything," like flying, skydiving. He says his "good days are behind him." He does feel hopeless at times and admits to thinking of suicide, and these thoughts really bother him because it is not typical of him, he doesn't think it is right, especially how it affects the people who care for him. He does report having a gun at home, locked up in a safe. He does not have an exact plan. He said that I am the only person he has said this to, but later said that he had spoken of this to his son. I did ask permission to talk about this with his son; at first he said no, but then he thought he had already spoken to his son about these thoughts and agreed it was ok to do so. He did brush off what he said, saying he would not actually go through with it, it's just something his mind goes to. He still finds pleasure in things. And even though he can't do the many things he used to do in his life, he is able to list things he looks forward to and can enjoy, such as having outdoor barbeques. We began the discussion of goals of care, and initially he said he would want DNR. In addition, nursing records note there is a POLST form in existence, which is DNR; however, it is not available. The patient became too tired and fatigued to continue the conversation; this is something we will discuss further. He states comfort is his goal; he is not sure about hospitalization or any other details right now. He reports dialysis wears him out, and one day is not enough to recuperate: he is still fatigued on the non-dialysis days. On the weekend he feels better by Sunday because it's a 2-day break from dialysis. His abdomen is quite extended but he had such a traumatic experience with his abdomen being tapped previously that he has refused any further tapping. He admits to feeling depressed at times, and also getting anxious about his health. He was open to trying medication and we discussed benefits and burdens. His biggest complaint is his productive cough, he wants "a pill" to help control it. Impression and Recommendations - Palliative Care Impression: This is a frail, cachectic-appearing charming 82-year-old gentleman with end- stage renal disease on hemodialysis 3x/week for more than 2 years. He has numerous comorbidities including HTN, CAD, CKD, COPD, severe aortic stenosis, history of possible atrial fibrillation, OA, frequent falls, recent history of pneumonia, significantly hard of hearing. He has recurring ascites for which he refuses further taps. He has recently had thoughts of suicide which trouble him , but does not have a plan. He is scheduled to be discharged home later this week, and will have 2 full-time care givers living with him. He would benefit from ongoing palliative care oversight, with transition to hospice when he meets criteria. Recommendations/Counseling Done: Pressure wound R hip: Referred to Home Health nursing for wound evaluation and management. COPD: Stable, 95% O2 sats on room air. Flovent q8h prn; Duonebs nebulizer q6h prn, Proair q4h prn Cough and sputum production s/p pneumonia: Start Guiafenesin 100mg/5ml; 10mL BID routine for 7 days, plus on-going PRN guaifenesin 10mL Q4h as needed, not to exceed 2,400mg/day. Benzonatate/Tessalon 100mg BID routine for 7 days, plus on-going PRN benzonatate 100mg TID prn, not to exceed 600mg/day End Stage Renal Disease, on Dialysis: Managed by Dr De, his painter helper. Dialysis on M,W,. Midodrine 20mg prior to each dialysis session. Avoid nephrotoxic medications Recurrent ascites: Refuses further tapping; reports it's not "bothering" him. Monitor closely Depression: Start citalopram: 5mg daily x 7 days, then 10mg daily x 7 days, then 20mg daily on-going. Reevaluate in 4-6 weeks. Advanced care planning: Initial discussion with patient regarding goals of care. POLST not in place, continue discussion at follow up visit. Follow up visit next week after he moves back to his home. Time Spent: 75 minutes were spent with more than 50% of the time spent on counseling, education, and coordination of care.
== END 2017-10-16 20:17 | disposition home or self-care (01) ==
LOC: PC 20:16
PROVIDERS: ATTEND Nurse Practitioner
DX: Z51.5 Encounter for palliative care (principal); L89.212 Pressure ulcer of right hip, stage 2; S71.001S Unspecified open wound, right hip, sequela; J44.9 Chronic obstructive pulmonary disease, unspecified; I12.0 Hypertensive chronic kidney disease with stage 5 chronic kidney disease or end stage renal disease; N18.6 End stage renal disease; R18.8 Other ascites; F32.9 Major depressive disorder, single episode, unspecified; R45.851 Suicidal ideations; Z99.2 Dependence on renal dialysis; Z74.01 Bed confinement status; I25.10 Atherosclerotic heart disease of native coronary artery without angina pectoris; I35.0 Nonrheumatic aortic (valve) stenosis; M19.90 Unspecified osteoarthritis, unspecified site; Z91.81 History of falling; Z87.01 Personal history of pneumonia (recurrent); H91.90 Unspecified hearing loss, unspecified ear; Z95.5 Presence of coronary angioplasty implant and graft; Z86.79 Personal history of other diseases of the circulatory system

== ENCOUNTER 2017-10-25 15:29 | Outpatient (CLI) | payer MEDICARE, OTHER ==
--- NOTE | 2017-10-25 19:16 | CONSULTATION NOTE ---
Palliative Care Follow Up - Referral Referring Provider: Dr Pascale Rolon Time of Visit: 10/25/2017. Referral setting: Home (Seen in home setting due to taxing and considerable effort required to leave the home due to weakness from end stage renal disease) Referral Reason: End stage renal disease - Information Sources Records reviewed: Previous records reviewed History/Review of Systems obtained from: Patient, Family, Caregiver Exam limitations: Clinical condition (significantly hard of hearing) - History of Present Illness Update Brief HPI Update: This is a frail, cachectic-appearing, charming 82-year-old gentleman with end- stage renal disease on hemodialysis dialysis for more than 2 years. He has numerous comorbidities, including HTN, CAD, CKD, COPD, severe aortic stenosis, history of possible atrial fibrillation, OA, frequent falls, recent history of pneumonia, significantly hard of hearing. He had a single stent placed approximately 6 years ago and history of atrial fibrillation. He has had increasingly frequent ED visits, and also a recent hospital stay at [facility] on September 25 for pneumonia. He has continued to decline in functionality and cognition. Yesterday he he was unable to meet criteria to be able to undergo his regularly scheduled dialysis, due to low blood pressure. Plan with his professor of communication was to send him home to get as much rest as possible and to return to his next scheduled dialysis on Sunday (tomorrow). His dialysis schedule is M, W, F. He is increasingly confused, uncomfortable, and declining in functionality. He meets medical criteria for hospice, but currently his choice is to attempt to continue with dialysis as scheduled for tomorrow. If he is medically unable to undergo dialysis, or if he chooses to not to go through with dialysis, the family understands that his condition will deteriorate very rapidly and admission to hospice will need to be done quickly. Social History - Living Situation Living arrangement: At home Living Situation: With caregiver(s) Support System: Juliana, a family friend, is acting in a health care liaison role. She has been living at this house and helping out since Apr 2017. Another gentleman who is also a friend now lives there and helps with errands, transferring the patient, etc. Son/DPJASON Hart lives in [place] and is coming to the patient's house tomorrow. Medications/Allergies - Medications Home Medications: Ambulatory Orders Medication Instructions Recorded Confirmed Acetaminophen 650 mg PO Q6H PRN 10/16/17 10/25/17 Albuterol Sulfate [Proair Hfa 2 puffs PO Q4H PRN 10/16/17 10/25/17 Inhaler] Bisacodyl Supp [Dulcolax Supp] 10 mg [place] DAILY PRN 10/16/17 10/25/17 Fluticasone 44 Mcg [Flovent] 1 puffs INH Q8H PRN 10/16/17 10/25/17 Ipratropium/Albuterol [Duoneb] 3 ml INH Q6H PRN 10/16/17 10/25/17 Loperamide [Imodium] 2 mg PO PRN PRN MDD NTE 8 tabs in 10/16/17 10/25/17 24 hrs Mag Hydrox/Aluminum Hyd/Simeth 30 ml PO Q4H PRN 10/16/17 10/25/17 [Antacid Suspension] Magnesium Hydroxide [Milk of 30 ml PO DAILY PRN 10/16/17 10/25/17 Magnesia] Midodrine HCl 10 mg PO . 3 TIMES PER WEEK MDD 10/16/17 10/25/17 before dialysis on M,W,F Guaifenesin [Tussin] 10 ml PO PRN PRN 10/25/17 10/25/17 Polyethylene Glycol 3350 [Miralax] 17 g PO DAILY 10/25/17 10/25/17 oxyCODONE [Roxicodone] 5 mg PO QID PRN 10/25/17 10/25/17 - Allergies Allergies/Adverse Reactions: Allergies Allergy/AdvReac Type Severity Reaction Status Date / Time Sulfa (Sulfonamide Allergy Severe Dizziness Verified 09/26/15 13:06 Antibiotics) Review of Systems - Constitutional Constitutional: reports: Fatigue, Weakness, Poor appetite, Weight loss ( cachectic. 139.8 lbs on 10/11/12. 140 lbs on 10/04/17.) - Respiratory Respiratory: reports: Cough - Gastrointestinal Gastrointestinal: reports: Abdominal pain, Constipation - Musculoskeletal Musculoskeletal: reports: Transfer issues - Integumentary Integumentary: reports: Pruritis - Neurological Neurological: reports: General weakness, Memory problems - Psychiatric Psychiatric: reports: Anxiety, Aggitation Physical Exam - Vital Signs Temperature: 96.5 F Pulse Rate: 54 O2 Saturation: 95 Blood Pressure: 90/50 - Physical Exam General Appearance: positive: Lethargic ENT: positive: No signs of dehydration Abdomen: positive: Non-tender, Distended (stable ascites) Skin: positive: Pressure wound (R hip; wound care provided by Home Health RN) Neurologic/Psychiatric: positive: Disoriented to time, Weakness, Slurred/abnml speech, Flat affect Palliative Care - POLST Patient has POLST: No Pain: Location (hip) Tiredness/Fatigue: Severe (7-10) Drowsiness/Sedation: Moderate (4-6) Anorexia: Weight loss Sleep: Variable sleep pattern Constipation: Yes, Opoid induced Feelings of wellbeing/Perceived Quality of Life: Worsening Performance Status: Rapidly declining - Palliative Care Discussion: Present at assessment is Juliana, live-in friend and caregiver, and a gentleman who is also living in the patient's house and providing support. We had a discussion by telephone with Tanner Rizvi, son of the patient. He will be driving to [facility] tomorrow. The patient missed yesterday's dialysis due to his poor condition; they could not perform the procedure. The current plan is that he get as much rest as possible between now and [facility] regularly scheduled dialysis. If he is unable to undergo dialysis tomorrow, or if he chooses not to undergo dialysis, then the plan is to admit him to Hospice. I have spoken with the enrollment manager and she is aware of this plan and can have him admitted on Sunday. Coordination with Home Health is needed so that the HH RN can provide coverage in the interim until Hospice is in place. Home Health bath aid is scheduled to come in this afternoon to give the patient a bed bath. Juliana the health care liaison, and son Tanner agree to this plan. Impression and Recommendations - Palliative Care Impression: This is an 82-year-old gentleman in the final stages of ESRD; dialysis is no longer effective. There is a very strong likelihood of his his failing to qualify for dialysis, or conversely he may refuse dialysis. In either case the family is prepared to have him admitted to Hospice. Home Health nursing will provide coverage if needed until he is admitted to Hospice which would be on Sunday10/27/17. Recommendations/Counseling Done: Pain: oxycodone 5mg PO QID prescribed by PCP. Pruritis: Patient has not allowed caregivers to bath him. HH bath aid is coming later this afternoon. R hip pressure wound: RN managing wound care. Constipation, opioid-induced: Start miralax 17g daily. Educated health care liaison about titrating. ESRD: Rapidly declining. Did not qualify for dialysis on Sunday; will re- attempt a dialysis session on Sunday, his next regularly scheduled appointment. If unable to undergo dialysis, family would like Hospice. Advanced care planning: No POLST is in place but at this point, due to the patient's inability to undergo dialysis, it is extraneous. Time Spent: 60 minutes were spent with more than 50% of the time spent on counseling, education, coordination of care, weighing benefits and burdens, providing anticipatory guidance regarding dialysis, ESRD, Hospice.
== END 2017-10-25 15:30 | disposition home or self-care (01) ==
LOC: PC 15:29
PROVIDERS: ATTEND Nurse Practitioner
DX: Z51.5 Encounter for palliative care (principal); R10.9 Unspecified abdominal pain; L29.9 Pruritus, unspecified; K59.03 Drug induced constipation; T40.2X5A Adverse effect of other opioids, initial encounter; L89.212 Pressure ulcer of right hip, stage 2; I12.0 Hypertensive chronic kidney disease with stage 5 chronic kidney disease or end stage renal disease; N18.6 End stage renal disease; I25.10 Atherosclerotic heart disease of native coronary artery without angina pectoris; J44.9 Chronic obstructive pulmonary disease, unspecified; I35.0 Nonrheumatic aortic (valve) stenosis; H91.90 Unspecified hearing loss, unspecified ear; Z91.81 History of falling; Z87.01 Personal history of pneumonia (recurrent); Z99.2 Dependence on renal dialysis; Z79.891 Long term (current) use of opiate analgesic
CPT/HCPCS: 99350